=== PATIENT | male | born 1980 | race Caucasian/White ===

== ENCOUNTER 2021-09-18 22:31 | Emergency (ER) | payer OTHER ==
[2021-09-18] MEDS ORDERED: HYDROCODONE/APAP 10/325 TAB ONE (22:56)
[2021-09-18] MEDS ORDERED: KETOROLAC 30 MG/ML INJ ONE (22:56)
--- NOTE | 2021-09-19 00:02 | EDPHYS ---
Physician Documentation [facility] Name: Edgar Edwards Age: 40 yrs Sex: Male : 1980 Arrival Date: 09/18/2021 Time: 22:34 Bed 3 Private MD: ZARA Physician Inder Guzman HPI: 09/18 23:57 This 40 yrs old Male presents to ER via Wheelchair with complaints of Leg Injury. jr8 23:57 The patient presents with decreased range of motion, pain, swelling, tenderness. The jr8 complaints affect the left ankle. Context: The problem was sustained outdoors, resulted from twisting of the extremity. Onset: The symptoms/episode began/occurred acutely, today. Modifying factors: The symptoms are alleviated by nothing. the symptoms are aggravated by movement, weight bearing. Associated signs and symptoms: The patient has no apparent associated signs or symptoms. Severity of symptoms: At their worst the symptoms were moderate, in the emergency department the symptoms are unchanged. The patient has experienced a previous episode. The patient has not recently seen a physician. Historical: - Allergies: 22:56 No Known Allergies; ld1 - Home Meds: 22:56 None [Active]; ld1 - PMHx: 22:56 None; ld1 - PSHx: 22:56 None; ld1 - Immunization history:: Adult Immunizations up to date, Client reports having NOT received the Covid vaccine. - Social history:: Smoking status: Patient denies any tobacco usage or history of. Patient uses alcohol, occasionally. ROS: 23:57 Eyes: Negative for injury, pain, redness, and discharge, ENT: Negative for injury, jr8 pain, and discharge, Neck: Negative for injury, pain, and swelling, Cardiovascular: Negative for chest pain, palpitations, and edema, Respiratory: Negative for shortness of breath, cough, wheezing, and pleuritic chest pain, Abdomen/GI: Negative for abdominal pain, nausea, vomiting, diarrhea, and constipation, Back: Negative for injury and pain, Skin: Negative for injury, rash, and discoloration, Neuro: Negative for headache, weakness, numbness, tingling, and seizure. 23:57 MS/extremity: Positive for decreased range of motion, pain, swelling, tenderness, of the left ankle. Exam: 23:57 Constitutional: This is a well developed, well nourished patient who is awake, alert, jr8 and in no acute distress. Cardiovascular: Regular rate and rhythm with a normal S1 and S2. No gallops, murmurs, or rubs. Normal PMI, no JVD. No pulse deficits. Respiratory: Lungs have equal breath sounds bilaterally, clear to auscultation and percussion. No rales, rhonchi or wheezes noted. No increased work of breathing, no retractions or nasal flaring. Skin: Warm, dry with normal turgor. Normal color with no rashes, no lesions, and no evidence of cellulitis. Neuro: Awake and alert, GCS 15, oriented to person, place, time, and situation. Cranial nerves II-XII grossly intact. Motor strength 5/5 in all extremities. Sensory grossly intact. 23:57 Musculoskeletal/extremity: Extremities: grossly normal except: noted in the left ankle: decreased ROM, pain, swelling, tenderness, swelling extends medial and laterally to ankle , ROM: limited active range of motion due to pain, limited passive range of motion due to pain, Circulation is intact in all extremities. Sensation intact. Vital Signs: 22:55 BP 131 / 67; Pulse 82; Resp 18; Temp 98.1(TE); Pulse Ox 100% on R/A; Weight 113.4 kg; ld1 Height 5 ft. 11 in. (180.34 cm); Pain 10/10; 22:55 Body Mass Index 34.87 (113.40 kg, 180.34 cm) ld1 Procedures: 23:57 Splinting: Splint applied to left ankle using lawrence wrap, applied by nurse. Examined by chanel az, post splint application: neurovascular intact, 2+ distal pulses palpable, brisk capillary refill noted. Crutch training provided to patient and/or family. Return demonstration given. MDM: 23:37 Patient medically screened. jr8 23:57 Data reviewed: vital signs, nurses notes, radiologic studies, plain films. Data 8 interpreted: Pulse oximetry: on room air is 100 %. Interpretation: normal. Counseling: I had a detailed discussion with the patient and/or guardian regarding: the historical points, exam findings, and any diagnostic results supporting the discharge/admit diagnosis, radiology results, the need for outpatient follow up, a orthopedic surgeon, to return to the emergency department if symptoms worsen or persist or if there are any questions or concerns that arise at home. ED course: Discussed with patient that he needs to stay off ankle for one week. ICE and elevate. If worse or not getting better to have imaged again after 7 days and to f/u with ortho. Can also come back to ED at any point in time. Patient good with plan . 09/18 22:49 Order name: XRAY Ankle LEFT 3 view ld1 09/18 22:49 Order name: XRAY Foot LEFT 3 View ld1 09/18 23:57 Order name: Lawrence wrap-joint; Complete Time: 00:21 jr8 09/18 23:57 Order name: Crutches; Complete Time: 00:21 jr8 Administered Medications: 22:57 Drug: HYDROcodone-acetaminophen 10 mg-325 mg 1 tabs Route: PO; ld1 09/19 00:21 Follow up: Response: No adverse reaction; Marked relief of symptoms jb4 09/18 22:57 Drug: Ketorolac 60 mg Route: IM; Site: right deltoid; 1 09/19 00:22 Follow up: Response: No adverse reaction jb4 Disposition Summary: 09/19/21 00:01 Discharge Ordered Location: Home jr8 Problem: new jr8 Symptoms: have improved jr8 Condition: Stable jr8 Diagnosis - Sprain of ankle jr8 Followup: jr8 - With: Wililam Hoffmann MD - When: 7 - 10 days - Reason: If symptoms return, Re-evaluation by your physician Discharge Instructions: - Discharge Summary Sheet jr8 - Ankle Sprain jr8 Forms: - Medication Reconciliation Form jr8 - Thank You Letter jr8 - Antibiotic Education jr8 - Prescription Opioid Use jr8 Prescriptions: - Ibuprofen 800 mg Oral Tablet - take 1 tablet by ORAL route every 12 hours As needed take with food; 20 tablet; jr8 Refills: 0, Product Selection Permitted - Tylenol-Codeine #3 300 mg-30 mg Oral - take 2 tablet by ORAL route every 8 hours As needed; 16 tablet; Refills: 0, jr8 Product Selection Permitted Signatures: Dispatcher [employer] EDCedric Watson PA PA jr8 Susan Tucker RN RN ld1 Adilson Paulino RN jb4
--- NOTE | 2021-09-19 00:02 | ER ---
Nurse's Notes [facility] Name: Edgar Edwards Age: 40 yrs Sex: Male : 1980 Arrival Date: 09/18/2021 Time: 22:34 Bed 3 Private MD: Diagnosis: Sprain of ankle Presentation: 09/18 22:55 Chief complaint: Patient states: Left ankle injury playing baseball. Coronavirus ld1 screen: At this time, the client does not indicate any symptoms associated with coronavirus-19. Ebola Screen: No symptoms or risks identified at this time. Initial Sepsis Screen: Does the patient meet any 2 criteria? No. Patient's initial sepsis screen is negative. Does the patient have a suspected source of infection? No. Patient's initial sepsis screen is negative. Risk Assessment: Do you want to hurt yourself or someone else? Patient reports no desire to harm self or others. Onset of symptoms was September 18, 2021. 22:55 Method Of Arrival: Wheelchair ld1 22:55 Acuity: SUSY 4 ld1 Triage Assessment: 22:56 General: Appears in no apparent distress. comfortable, Behavior is calm, cooperative, ld1 appropriate for age. Pain: Complains of pain in left lateral ankle Pain does not radiate. Pain currently is 9 out of 10 on a pain scale. Quality of pain is described as throbbing, Pain began suddenly. EENT: No signs and/or symptoms were reported regarding the EENT system. Neuro: Level of Consciousness is awake, alert, obeys commands, Oriented to person, place, time, situation. Respiratory: Airway is patent Respiratory effort is even, unlabored. Musculoskeletal: Reports pain in left leg. Historical: - Allergies: 22:56 No Known Allergies; ld1 - Home Meds: 22:56 None [Active]; ld1 - PMHx: 22:56 None; ld1 - PSHx: 22:56 None; ld1 - Immunization history:: Adult Immunizations up to date, Client reports having NOT received the Covid vaccine. - Social history:: Smoking status: Patient denies any tobacco usage or history of. Patient uses alcohol, occasionally. Screenin:30 Abuse screen: Denies threats or abuse. Nutritional screening: No deficits noted. jb4 Tuberculosis screening: No symptoms or risk factors identified. Fall Risk None identified. Assessment: 23:30 General: Appears in no apparent distress. comfortable, Behavior is calm, cooperative, jb4 appropriate for age. Neuro: Level of Consciousness is awake, alert, obeys commands, Oriented to person, place, time, situation. Cardiovascular: Patient's skin is warm and dry. Respiratory: Airway is patent Respiratory effort is even, unlabored, Respiratory pattern is regular, symmetrical. GI: No signs and/or symptoms were reported involving the gastrointestinal system. : No signs and/or symptoms were reported regarding the genitourinary system. EENT: No signs and/or symptoms were reported regarding the EENT system. Derm: Skin is pink, warm \T\ dry. Musculoskeletal: Circulation, motion, and sensation intact. Range of motion: intact in all extremities. 23:30 Injury Description: Abrasion sustained to right knee. jb4 Vital Signs: 22:55 BP 131 / 67; Pulse 82; Resp 18; Temp 98.1(TE); Pulse Ox 100% on R/A; Weight 113.4 kg; ld1 Height 5 ft. 11 in. (180.34 cm); Pain 10/10; 22:55 Body Mass Index 34.87 (113.40 kg, 180.34 cm) ld1 ED Course: 22:34 Patient arrived in ED. jj6 22:56 Triage completed. ld1 22:56 Arm band placed on left wrist. ld1 23:30 Patient has correct armband on for positive identification. Bed in low position. Call jb4 light in reach. Side rails up X 1. 23:30 No provider procedures requiring assistance completed. Patient did not have IV access jb4 during this emergency room visit. 23:34 Joe Tadeo, BEE is Primary Nurse. as6 23:37 Cedric Purvis PA is PHCP. jr8 23:37 Inder Guzman MD is Attending Physician. jr8 23:49 XRAY Ankle LEFT 3 view In Process Unspecified. EDMS 23:49 XRAY Foot LEFT 3 View In Process Unspecified. EDMS 09/19 00:00 William Hoffmann MD is Referral Physician. jr8 Administered Medications: 09/18 22:57 Drug: HYDROcodone-acetaminophen 10 mg-325 mg 1 tabs Route: PO; ld1 09/19 00:21 Follow up: Response: No adverse reaction; Marked relief of symptoms jb4 09/18 22:57 Drug: Ketorolac 60 mg Route: IM; Site: right deltoid; ld1 09/19 00:22 Follow up: Response: No adverse reaction jb4 Outcome: 00:01 Discharge ordered by . jr8 00:20 Discharged to home ambulatory, with crutches, with family. jb4 00:20 Condition: stable 00:20 Discharge instructions given to patient, family, Instructed on discharge instructions, follow up and referral plans. no drinking with medication, medication usage, Demonstrated understanding of instructions, follow-up care, medications. 00:22 Patient left the ED. jb4 Signatures: Dispatcher [employer] EDMS Cedric Purvis PA PA jr8 Adilson Paulino RN RN jb4 Susan Tucker RN RN ld1 Goldie Cain jj6 Joe Tadeo RN RN as6
[2021-09-19 02:58] VITALS: BP 131/67; TEMP 98.1; O2SAT 100
--- NOTE | 2021-09-19 15:57 | RAD REPORT ---
EXAM DESCRIPTION: RAD - Ankle Left 3 View - 09/18/2021 11:47 pm CLINICAL HISTORY: 40 years, Male, PAIN COMPARISON: None. FINDINGS: 3 X-ray views of the left foot and left ankle (Frontal, lateral and oblique views) were pe rformed. No acute bony injuries were demonstrated. No gross articular abnormality is identified. There are no gross intraosseous lesions. No periosteal reaction were seen. There is soft tissue swelling m edial lateral malleolus. Ankle mortise views demonstrate unremarkable. No definitive displaced fractu re are identified, if symptoms persist, clinical correlation and/or further evaluation with CT scan a nd/or MRI could be of assistance. IMPRESSION: No acute bony injuries were demonstrated. Soft tissue swelling bilateral malleoli. Electronically signed by: Rafy Chavarria MD 09/19/2021 12:04 AM CDT Due to temporary technical issues with the PACS/Fluency reporting system, reports are being signed by the in house radiologists without review as a courtesy to insure prompt reporting. The interpreting radiologist is fully responsible for the content of the report.
== END 2021-09-19 00:22 | disposition home or self-care (01) ==
LOC: ER 22:31
DX: S93.402A Sprain of unspecified ligament of left ankle, initial encounter (principal); X50.1XXA Overexertion from prolonged static or awkward postures, initial encounter; Y92.89 Other specified places as the place of occurrence of the external cause
CPT/HCPCS: 96372; 99283